=== PATIENT | female | born 1985 | race African-American/Black ===

== ENCOUNTER 2016-11-01 03:46 | Emergency (ER) | payer SELFPAY ==
[~2016-11-01] VITALS: Ht 157.5 cm; Wt 56.3 kg
[2016-11-01 03:49] VITALS: BP 106/70
[2016-11-01 04:34] LABS: PATH.CAST-FLAG NOT PRESENT; SPERM-FLAG NOT PRESENT; SRC-FLAG NOT PRESENT; XTAL-FLAG NOT PRESENT; YLC-FLAG NOT PRESENT
[2016-11-01 04:35] LABS: HCG UR OBC PASS
[2016-11-01] MEDS ORDERED: CEFTRIAXONE 250 MG IM ONE (05:00)
[2016-11-01] MEDS ORDERED: AZITHROMYCIN 500 MG TABLET PO ONE (05:00)
[2016-11-01] MEDS ORDERED: AZITHROMYCIN 250 MG TABLET ONE (05:23)
[2016-11-01] MEDS ORDERED: LIDOCAINE 1%, 20ML ONE (05:23)
[2016-11-01] MEDS ORDERED: CEFTRIAXONE 250 MG ONE (05:23)
== END 2016-11-01 07:06 | disposition left against medical advice (07) ==
LOC: ED 06:45
DX: N89.8 Other specified noninflammatory disorders of vagina (principal); R30.0 Dysuria
CPT/HCPCS: 81001; 81025; 87086; 87210; 87491; 87591; 87808; 96372; 99284; J0696

== ENCOUNTER 2021-02-09 20:34 | Emergency (ER) | payer MEDICAID ==
[~2021-02-09] VITALS: Ht 157.5 cm; Wt 58.2 kg
[2021-02-09 20:43] VITALS: BP 136/76
== END 2021-02-09 22:15 | disposition home or self-care (01) ==
LOC: ED 21:25
DX: N89.8 Other specified noninflammatory disorders of vagina (principal); F17.210 Nicotine dependence, cigarettes, uncomplicated; Z72.9 Problem related to lifestyle, unspecified
CPT/HCPCS: 81001; 81025; 87077; 87086; 87186; 87210; 87491; 87591; 87808; 96372; 99284; 99406; J0696; J3490